=== PATIENT | male | born 1990 | race Two or more races ===

== ENCOUNTER → 2025-08-26 | Emergency (ER) | payer OTHER ==
[~2025-08-26] VITALS: Ht 185.4 cm; Wt 113.4 kg
[~2025-08-26] MED LIST: INSULIN LISPRO 1,000 UNIT/10 ML UNITS SUBCUTANEO STA; METFORMIN HCL500 M3 PO
[2025-08-26 20:31] VITALS: BP 123/83; O2SAT 99
[2025-08-26 23:16] LABS: BASO % 0.5 % (0.1-1.2); EOS # 0.09 (0.04-0.54); EOS % 1.0 % (0.7-7.0); LYMPH # 2.95 (1.18-3.74); LYMPH % 33.6 % (19.3-53.1); MEAN PLATELET VOLUME 10.40 fl (9.4-12.4); MONO # 0.58 (0.24-0.82); MONO % 6.6 % (4.7-12.5); NEUT # 5.04 (1.56-6.13); NEUT % 57.5 % (34.0-71.1); RED CELL DISTRIBUTION WIDTH 12.1 % (11.6-14.4)
[2025-08-26 23:20] LABS: ERYTHROCYTE SEDIMENTATION RATE 8 mm/hr (0-15)
[2025-08-26 23:34] LABS: INR 1.04
[2025-08-26 23:39] LABS: ALT/SGPT 26.0 U/L (12-78); AST/SGOT 13.0 U/L (15-37); BILIRUBIN TOTAL 0.5 mg/dL (0.3-1.2); BUN CREA RATIO 12.0 (7.0-25.0); CREATININE SERUM 1.07 mg/dL (0.70-1.30); GFR 78.2; GLOBULINA 3.4 G/DL (2.4-3.5)
[2025-08-26 23:40] LABS: GLUCOSE FASTING 313.0 mg/dL (65-100); OSMOLALITY SERUM 291.0 MOSM/KG (275-295)
== END | disposition home or self-care (01) ==
LOC: ER 18:49
PROVIDERS: Physician Assistant Medical
DX: E11.65 Type 2 diabetes mellitus with hyperglycemia (principal); Z79.84 Long term (current) use of oral hypoglycemic drugs; R07.9 Chest pain, unspecified